=== PATIENT | female | born 1975 | race Caucasian/White ===

== ENCOUNTER 2025-04-07 12:17 | Emergency (ER) | payer OTHER, SELFPAY ==
[2025-04-07] MEDS ORDERED: Sulfameth/Trimethoprim DS 800-160mg TAB ONE (13:22)
[2025-04-07 17:02] LABS: HIV (1/2) Antibody/Antigen Reflxed Confirmation (NonReactive)
[2025-04-07 17:04] LABS: HIV 1/2 INDEX 82.37 S/CO (<1.00)
== END 2025-04-07 13:37 | disposition home or self-care (01) ==
LOC: BURERS 12:17
DX: J18.9 Pneumonia, unspecified organism (principal); R63.4 Abnormal weight loss; F17.210 Nicotine dependence, cigarettes, uncomplicated; Z59.71 Insufficient health insurance coverage
CPT/HCPCS: 36415; 71046; 87389; 87535; 87538